=== PATIENT | female | born 1975 | race Two or more races ===

== ENCOUNTER 2024-06-18 10:48 | Emergency (ER) | payer MEDICAID, SELFPAY ==
[2024-06-18 11:06] VITALS: BP 179/78; PULSE 85; RESP 19; TEMP 37.2; O2SAT 98; BMI 33.5
--- NOTE | 2024-06-18 11:27 | XR_ITS ---
Examination: Pelvic ultrasound, transabdominal, complete Technique: Transabdominal ultrasound of the pelvis performed using grayscale imaging Date and time of exam: June 18, 2024 1150 hours INDICATIONS: Lower back pain pelvic pain beginning 3 months ago, vaginal bleeding beginning one month ago FINDINGS: Uterus 8.9 x 4.8 x 6.6 cm Endometrial stripe 10 mm No uterine mass or intrauterine gestation Right ovary 2.6 x 1.9 x 2.5 cm arterial flow Left ovary 2.8 x 2.4 x 2.1 cm arterial flow IMPRESSION: Thickened endometrial stripe 10 mm The patient is postmenopausal the endometrial stripe is abnormally thickened such as seen with endometrial hyperplasia or early malignant neoplasm of the endometrium, clinical correlation advised
--- NOTE | 2024-06-18 11:28 | PD.EDRME ---
Rapid Medical Screening Exam RME Arrival date/time: 06/18/24 10:48 49-year-old female presents to the emergency department complains of vaginal bleeding patient reports that she had an IUD removed in April and had a Nexplanon placed Chief Complaint: Vaginal Bleeding Time Seen by Provider: 06/18/24 11:24 Vital signs: Vital Signs Temperature 98.9 F 06/18/24 11:06 Pulse Rate 85 06/18/24 11:06 Respiratory Rate 19 06/18/24 11:06 Blood Pressure 179/78 H 06/18/24 11:06 Pulse Oximetry (%) 98 06/18/24 11:06 Oxygen Delivery Method Room Air 06/18/24 11:06
[2024-06-18 13:17] LABS: Basophils # (Auto) 0.1 Thou/mm3 (0.0-0.2); Basophils % (Auto) 1 % (0-2.5); Eosinophils # (Auto) 0.2 Thou/mm3 (0.0-0.5); Eosinophils % (Auto) 2 % (0-10); Hematocrit 36.2 % (36.0-46.0); Hemoglobin 11.6 g/dL (12.0-16.0); Immature Granulocytes % (Auto) 0 % (0-0); Immature Granulocytes Auto 0.01 Thou/mm3 (0.00-0.00); Lymphocytes # (Auto) 2.6 Thou/mm3 (1.0-4.8); Lymphocytes % (Auto) 31 % (10-50); Mean Corpuscular Hemoglobin 26.1 pg (25.0-35.0); Mean Corpuscular Volume 82 fL (80-100); Monocytes # (Auto) 0.6 Thou/mm3 (0.0-0.8); Monocytes % (Auto) 7 % (0-12); Neutrophils % (Auto) 59 % (37-80); Nucleated Red Blood Cell % 0 /100 WBC (0); Platelet Count 343 Thou/mm3 (140-440); RDW Standard Deviation 39.8 fL (36.4-46.3); Red Blood Count 4.44 Miln/mm3 (4.00-5.20); White Blood Count 8.3 Thou/mm3 (3.6-11.0)
[2024-06-18 13:37] LABS: Alanine Aminotransferase 10 U/L (10-49); Albumin, Serum 4.7 gm/dL (3.5-5.0); Albumin/Globulin Ratio 1.5 (1.2-2.2); Alkaline Phosphatase 96 U/L (46-116); Anion Gap 8 (7-16); Aspartate Amino Transferase 11 U/L (0-34); BUN/Creatinine Ratio 19 Ratio (12-20); Bilirubin,Total 0.2 mg/dL (0.3-1.2); Blood Urea Nitrogen 13 mg/dL (9-23); Carbon Dioxide 25.2 mMol/L (20.0-31.0); Chloride 106 mMol/L (98-107); Creatinine (Component) 0.7 mg/dL (0.6-1.3); Estimated Creatinine Clearance 95.1 mL/min (>60); Globulin 3.2 gm/dL (2.3-3.5); Glucose 114 mg/dL (74-106); Osmolality,Calculated 278 (275-295); Potassium 4.1 mMol/L (3.4-5.1); Sodium 139 mMol/L (136-145); Total Protein 7.9 gm/dL (5.7-8.2); eGFR > 60 See Note
[2024-06-18 13:58] LABS: Collection Type, Urine Clean Catch
[2024-06-18 14:08] LABS: HCG Qualitative,Urine Negative
[2024-06-18 14:09] LABS: Bilirubin,Urine Negative (Negative); Blood,Urine 3+ (Negative); Clarity,Urine Turbid (Clear/Hazy); Color,Urine Yellow (Lt Yel-Yel); Culture Indicated,Urine Not Indicated; Glucose, Urine Negative (Negative); Ketones,Urine Negative (Negative); Leukocyte Esterase,Urine Negative (Negative); Nitrite,Urine Negative (Negative); Protein,Urine 1+ (Neg - Trace); RBC,Urine 706 /hpf (0-3); Specific Gravity,Urine 1.024 (1.001-1.035); Squamous Epithelial Cell,Urine 1 /hpf (0-5); Urobilinogen,Urine Negative mg/dL (0.0-1.0); WBC,Urine 3 /hpf (0-5)
[2024-06-18 15:18] VITALS: BP 146/87; PULSE 80; RESP 18; TEMP 36.7; O2SAT 100
--- NOTE | 2024-06-18 15:56 | EDNOTE_ITS ---
ED General RME/HPI General Chief complaint: Vaginal Bleeding Stated complaint: VAGINAL BLEEDING X 4 WKS; SENT BY CLINIC Time Seen by Provider: 06/18/24 11:24 Arrival date/time: 06/18/24 10:48 CC: Vaginal bleeding HPI ongoing for 1 month after the patient had an IUD removed and an implant put in arm patient was told she is doing this because she thinks that she can go through menopause . Patient denies any lightheadedness dizziness shortness of breath or difficulty breathing. No other complaints. RME / HPI RME / HPI narrative: 06/18/24 10:48 49-year-old female presents to the emergency department complains of vaginal bleeding patient reports that she had an IUD removed in April and had a Nexplanon placed Related Data Home Medications ?Medication ?Instructions ?Recorded ?Confirmed cholecalciferol (vitamin D3) 1,250 1,250 mcg PO QWEEK 10/24/23 10/24/23 mcg (50,000 unit) capsule gabapentin 300 mg capsule 300 mg PO QDAY 10/24/23 10/24/23 metformin 500 mg tablet 500 mg PO BID 10/24/23 10/24/23 omega-3 fatty acids 500 mg capsule 500 mg PO QDAY 10/24/23 10/24/23 terbinafine HCl 250 mg tablet 250 mg PO QDAY 10/24/23 10/24/23 Allergies Allergy/AdvReac Type Severity Reaction Status Date / Time No Known Allergies Allergy Verified 06/18/24 10:49 Review of Systems Review of Systems Narrative Review of Systems: GEN: No fever, no chills, no weight loss EYES: No discharge, no visual changes, no pain HEENT: No ear pain, no congestion, no sore throat PULM: No shortness of breath, no cough, no congestion CV: No chest pain, no dyspnea on exertion, no palpitations GI: No nausea, no vomiting, no diarrhea, no pain, no constipation : No frequency, no urgency, no dysuria MUSC/SKEL: No joint pain, no back pain SKIN: No rash PSYCH: No hallucinations, no depression HEME/LYMPH: No easy bleeding or bruising tendencies NEURO: No weakness, no headache Past Medical History Past Medical History ENDOCRINE: Positive Diabetes Mellitus Type 2 Social History SMOKING STATUS: Never smoker SUBSTANCE USE: does not use ED Exam Narrative Physical exam: [General: Obese not in any acute distress Head normocephalic HEENT: Within acceptable limits Neck is supple nontender Chest equal chest rise nontender to palpation Respiratory: Clear to auscultation no wheezes crackles or rubs CV: Rate rhythm is regular no murmurs rubs or clicks Abdomen is distended secondary to body habitus soft nontender no masses positive bowel sounds all 4 quadrants Back: No CVA tenderness no spinous process tenderness from cervical spine thoracic and lumbar spine Skin: Intact no petechiae rash induration ulceration or crepitus Extremities: Moving all extremity against resistance cap refill less than 2 seconds neurosensory intact Neuro: Awake alert oriented x3 Glascow coma 15 no focal deficits] Course Quality Measures none Orders Category Date Time Status US pelvic complete Stat Exams 06/18/24 11:27 Completed CBC Stat Lab 06/18/24 13:05 Completed Comprehensive Metabolic Panel Stat Lab 06/18/24 13:05 Completed HCG Qualitative,Urine Stat Lab 06/18/24 13:00 Completed UA, C/S IF [Urinalysis, C/S if Indicated] Stat Lab 06/18/24 13:00 Completed Vital Signs Vital signs: Vital Signs Temperature 98.9 F 06/18/24 11:06 Pulse Rate 85 06/18/24 11:06 Respiratory Rate 19 06/18/24 11:06 Blood Pressure 179/78 H 06/18/24 11:06 Pulse Oximetry (%) 98 06/18/24 11:06 Oxygen Delivery Method Room Air 06/18/24 11:06 [facility] Patient data External records reviewed:: [facility] previous records Clinical information provided by:: patient Social determinants that could affect healthcare access:: none Patient has the following chronic illnesses:: Diabetes How is presenting disease/condition affected by chronic disease/condition?: u neffected by Evaluation data The following diagnostics were reviewed and interpreted by me:: lab results and radiology exam(s) Lab and/or radiology exams considered but not ordered:: Ultrasound of the uterus shows a thickened endometrial stripe CBC shows no acute leukocytosis there is a very mild anemia no thrombocytopenia CMP shows mildly elevated glucose level no other significant electrolyte imbalances renal impairment transaminitis or T. bili elevation. Interpretation Summary: Dysfunctional uterine bleeding I suspect this is a combination of either menopause the implant and readjustment to the body by IUD removal. Either way patient has a follow-up with her LIGHT TECHNICIAN. Medications Medications considered but not ordered:: None Medication administrations:: None Consultations Consultation(s) initiated? (list below): No Diagnosis Differential Diagnosis ED Complaint MDM: Intrauterine uterine puncture anemia Most likely diagnosis given after review of the tests above:: Dysfunctional uterine bleeding Admission Indicated Admission indicated?: not indicated Explain why admission is indicated or not indicated:: Stable for outpatient follow-up Admission Request Was there a request for admission?: No Disposition Plan Disposition Plan: Discharge Discharge Attestation Discharge Attestation: The patient and all family members were given an opportunity to ask questions and understood the discharge instructions. Discharge instructions specifically effects, indications for sooner follow up or return to the emergency department, and the expected course of current diagnosis. Patient condition: Stable Medical Decision Making Differential Diagnosis Differential Diagnosis: Intrauterine uterine puncture anemia Lab Data 06/18/24 13:05 06/18/24 13:05 Labs: Lab Results 06/18/24 06/18/24 Range/Units 13:00 13:05 WBC 8.3 (3.6-11.0) Thou/mm3 RBC 4.44 (4.00-5.20) Miln/mm3 Hgb 11.6 L (12.0-16.0) g/dL Hct 36.2 (36.0-46.0) % MCV 82 (80-100) fL MCH 26.1 (25.0-35.0) pg MCHC 32.0 (31.0-37.0) g/dl RDW Std Deviation 39.8 (36.4-46.3) fL Plt Count 343 (140-440) Thou/mm3 Neut % (Auto) 59 (37-80) % Lymph % (Auto) 31 (10-50) % [place] % (Auto) 7 (0-12) % Eos % (Auto) 2 (0-10) % Baso % (Auto) 1 (0-2.5) % Neut # (Auto) 5.0 (1.8-7.7) Thou/mm3 Lymph # (Auto) 2.6 (1.0-4.8) Thou/mm3 [place] # (Auto) 0.6 (0.0-0.8) Thou/mm3 Eos # (Auto) 0.2 (0.0-0.5) Thou/mm3 Baso # (Auto) 0.1 (0.0-0.2) Thou/mm3 Immature Gran # (Auto) 0.01 H (0.00-0.00) Thou/mm3 Absolute Nucleated RBC 0.00 (0.00-0.00) Thou/mm3 Immature Gran % 0 (0-0) % Nucleated RBC % 0 (0) /100 WBC Sodium 139 (136-145) mMol/L Potassium 4.1 (3.4-5.1) mMol/L Chloride 106 (98-107) mMol/L Carbon Dioxide 25.2 (20.0-31.0) mMol/L Anion Gap 8 (7-16) BUN 13 (9-23) mg/dL Creatinine 0.7 (0.6-1.3) mg/dL Estim Creat Clear Calc 95.1 (>60) mL/min eGFR > 60 (60 - ) See Note BUN/Creatinine Ratio 19 (12-20) Ratio Glucose 114 H (74-106) mg/dL Calculated Osmolality 278 (275-295) Calcium 9.0 (8.3-10.6) mg/dL Corrected Calcium 9.0 (8.5-10.1) mg/dL Total Bilirubin 0.2 L (0.3-1.2) mg/dL AST 11 (0-34) U/L ALT 10 (10-49) U/L Alkaline Phosphatase 96 (46-116) U/L Total Protein 7.9 (5.7-8.2) gm/dL Albumin 4.7 (3.5-5.0) gm/dL Globulin 3.2 (2.3-3.5) gm/dL Albumin/Globulin Ratio 1.5 (1.2-2.2) Ur Collection Type Clean Catch Urine Color Yellow (Lt Yel-Yel) Urine Clarity Turbid A (Clear/Hazy) Urine pH 7.0 (5.0-7.0) Ur Specific [place] 1.024 (1.001-1.035) Urine Protein 1+ A (Neg - Trace) Urine Glucose (UA) Negative (Negative) Urine Ketones Negative (Negative) Urine Blood 3+ A (Negative) Urine Nitrite Negative (Negative) Urine Bilirubin Negative (Negative) Urine Urobilinogen (Auto) Negative (0.0-1.0) mg/dL Ur Leukocyte Esterase Negative (Negative) Urine RBC 706 H (0-3) /hpf Urine WBC 3 (0-5) /hpf Ur Squamous Epith Cells 1 (0-5) /hpf Urine Bacteria None (None) Ur Culture Indicated? Not Indicated Urine HCG, Qual Negative Discharge Plan Plan Patient Disposition: HOME (Self Care) Patient condition on transfer: Stable Prescriptions/Referrals Prescriptions/Med Rec: No Action metformin 500 mg tablet 500 mg PO BID terbinafine HCl 250 mg tablet 250 mg PO QDAY cholecalciferol (vitamin D3) 1,250 mcg (50,000 unit) capsule 1,250 mcg PO QWEEK gabapentin 300 mg capsule 300 mg PO QDAY omega-3 fatty acids 500 mg capsule 500 mg PO QDAY Referrals: Katharina Adamson FNP [Primary Care Provider] - In 1 week Tramaine Bellamy MD [Physician] - In 1 week Problem List Clinical Impression: DUB (dysfunctional uterine bleeding) Patient/Caregiver Discharge Instructions Education Materials: ED Dysfunctional Uterine Bleeding Print Language: Nepalese Stand Alone Forms: Nancy Award Info., Patient Portal Info Letter, Work/School Release PA/COAL PULVERIZING OPERATOR Supervising Physician PA/COAL PULVERIZING OPERATOR Supervising Physician: Maximiliano Mac ENP
== END 2024-06-18 16:05 | disposition home or self-care (01) ==
PROVIDERS: Nurse Practitioner Primary Care; Emergency Provider Emergency Medicine; PCP Nurse Practitioner Family
DX: N93.8 Other specified abnormal uterine and vaginal bleeding (principal)
CPT/HCPCS: 36415; 76856; 80053; 81001; 81025; 85025; 99284

== ENCOUNTER 2024-07-24 07:00 | Day surgery (SDC) | payer MEDICAID, SELFPAY ==
[2024-07-23 12:52] LABS: HCG Qualitative,Urine Negative
[2024-07-23 13:26] VITALS: BMI 33.6
[2024-07-24] VITALS (9 sets, daily range): BP systolic 121–152; BP diastolic 70–94; PULSE 66–89; RESP 18–22; TEMP 36.6–36.7; O2SAT 97–100; BMI 25.1
[2024-07-24] MEDS: DiphenhydrAMINE INJ 50 MG/ML VIAL 25 MG IV (10:28)
[2024-07-24] MEDS: MIDAZOLAM INJ 1 MG/ML VIAL 2 ML (ASD USE ONLY) 2 MG IV (10:29)
[2024-07-24] MEDS: fentaNYL CIT INJ 50 mCg/ML AMP 2ML (ASD USE ONLY) IV (10:29)
== END 2024-07-24 11:17 | disposition home or self-care (01) ==
PROVIDERS: PCP Obstetrics & Gynecology; Referring Provider Surgery; Visit Provider Surgery
PROC: 0DBE8ZX Excision of Large Intestine, Via Natural or Artificial Opening Endoscopic, Diagnostic (ICD-10-PCS; CPT 45380; principal; 2024-07-24 09:15)
DX: Z12.11 Encounter for screening for malignant neoplasm of colon (principal); K64.9 Unspecified hemorrhoids; K57.30 Diverticulosis of large intestine without perforation or abscess without bleeding
CPT/HCPCS: 45378; 81025; J1200; J2250; J3010

== ENCOUNTER 2024-08-13 10:05 | Outpatient (AMB) | payer MEDICAID, SELFPAY ==
[2024-08-13 09:58] VITALS: BMI 25.2
--- NOTE | 2024-08-13 09:58 | PD.GSCLVISIT ---
Vital Signs - [facility] 08/13/24 09:58 Height 1.8 m Height Method Stated Weight 81.647 kg Weight Measurement Method Estimated by Patient BMI 25.2 Med/Allergies Allergies & Medications Allergies No Known Allergies Allergy (Verified 08/13/24 09:59) Medication Reconciliation cholecalciferol (vitamin D3) 1,250 mcg (50,000 unit) capsule 1,250 mcg PO QWEEK 10/24/23 [History Confirmed 08/13/24] gabapentin 300 mg capsule 300 mg PO QDAY 10/24/23 [History Confirmed 08/13/24] metformin 500 mg tablet 500 mg PO QDAY 10/24/23 [History Confirmed 08/13/24] omega-3 fatty acids 500 mg capsule 500 mg PO QDAY 10/24/23 [History Confirmed 08/13/24] terbinafine HCl 250 mg tablet 250 mg PO QDAY 10/24/23 [History Confirmed 08/13/24] MA Intake Visit Data Collection New Patient or Established: Established Patient (seen at [facility] within 3 years) Seen by Clinical Staff ONLY (RN/MA): No Reason for Visit:: COLONOSCOPY RESULTS Pain Present Currently: No Carbon Dioxide Operator Required: Yes PCP or OBGYN visit in last 3 months: Yes Hx Now: No Do You Feel Safe at Home: Yes Authorities Contacted: N/A Smoking Status Smoking Status: Never smoker Immunization / Flu Flu Vaccine in the Last 12 Months: No Flu Vaccine Exclusion Criteria: Already Received Past Medical History Past Medical History NEUROLOGIC: Positive Neurological Disorders and Migraine; Negative Seizures CARDIAC: Positive Cardiac Disorders and Hypercholesterolemia; Negative Congestive Heart Failure RESPIRATORY: Negative Chronic Obstructive Pulmonary Disease (COPD) GASTROINTESTINAL: Negative Gastrointestinal Disorders GENITOURINARY: Negative Genitourinary Disorders or Renal Disease REPRODUCTIVE: Positive Previous Pregnancies ENDOCRINE: Positive Endocrine Disorders and Diabetes Mellitus Type 2; Negative Diabetes Mellitus Type 1 HEMATOLOGIC: Negative Blood Disorders OTHER HISTORY: Positive Cancer; Negative Falls, Blood Transfusions, Anesthesia Reactions, Chicken Pox, Measles or Mumps Social History SMOKING STATUS: Smoking status: Never smoker ALCOHOL: Alcohol Intake: Never HOUSING: Housing: House HPI HPI Narrative Spoke to pt via phone with paste worker 49F having televisit for follow up of colonoscopy. Pt reports feeling well overall with no concerns ROS Review of Systems Systems Reviewed: All systems reviewed, normal except as documented Objective/Exam General Limitations: other (limited by televisit) Results Colonoscopy report reviewed Assessment & Plan Diagnosis / Problem List (1) Encounter to discuss colonoscopy results: Status: Acute Plan 49F s/p screening colonoscopy 07/2024 with findings of hemorrhoids and diverticulosis. All questions were answered and pt understands she is next due for screening in 10 years Office Procedures GNS Level of Care Nursing/Assessment Patient Status: Established Patient Nursing Assessment/Reassesment: Medication Reconciliation, Update PMH in EMR and Vital Signs Coordination of Care: Complex Care and Chronic Disease 1-5, Consent,records obtained, informed consent, Education Simp Pt/Fam, Results/Orders obtained and Staff clarify orders Special Needs: Language special needs Established Patient Charge Established Patient Point Assignment: 90 Telehealth Telemed Phone/Video with patient at home & Dr,PA,FILM REPLACEMENT ORDERER: Yes Patient Portal Questionaires Social History Living Situation History Housing: House Tobacco History Smoking Status: Never smoker Alcohol History Alcohol Intake: Never Domestic Abuse History Do You Feel Safe at Home: Yes Review of Systems Report any current symptoms Only answer those that you have currently: Past Medical History Past Medical History Have you ever been diagnosed with any of the following: Neurological Problems Seizures: No Migraine: Yes Cardiology Problems Hypercholesterolemia: Yes Congestive Heart Failure: No Respiratory Problems Chronic Obstructive Pulmonary Disease (COPD): No Genital/Urinary Problems Renal Disease: No Reproductive Problems Previous Pregnancies: Yes Endocrine Problems Diabetes Mellitus Type 1: No Diabetes Mellitus Type 2: Yes Other Problems Falls: No Blood Transfusions: No Anesthesia Reactions: No Chicken Pox: No Measles: No Mumps: No Cancer: Yes
== END 2024-08-13 10:07 | disposition home or self-care (01) ==
LOC: HODSRG 10:05
PROVIDERS: PCP Nurse Practitioner Family; Referring Provider Nurse Practitioner Family; Supervising Provider Surgery; Visit Provider Surgery
DX: Z71.2 Person consulting for explanation of examination or test findings (principal); K64.9 Unspecified hemorrhoids; K57.90 Diverticulosis of intestine, part unspecified, without perforation or abscess without bleeding
CPT/HCPCS: 99212; G0463